=== PATIENT | male | born 1945 | race Caucasian/White ===

== ENCOUNTER 2022-08-31 10:18 | Emergency (ER) | payer MEDICARE ==
[~2022-08-31] VITALS: Ht 165.1 cm; Wt 81.6 kg
[2022-08-31 10:20] VITALS: BP_SYST 143
--- NOTE | 2022-08-31 10:46 | NUR ---
PLACED ON MONITOR, O2, B/P CALLED RT FOR SUCTION SAT @98%
--- NOTE | 2022-08-31 10:50 | NUR ---
Dr Davila evaluating patient at bedside
[2022-08-31 11:03] LABS: BASOPHILS % (AUTO) 0.8 % (0.0-2.0); EOSINOPHILS # (AUTO) 0.1 K/uL (0.0-0.4); HEMATOCRIT 35.1 % (36-54); HEMOGLOBIN 11.9 g/dL (14.0-18.0); LYMPHOCYTES # (AUTO) 1.7 K/uL (1.0-5.5); LYMPHOCYTES % (AUTO) 27.8 % (20.5-51.5); MEAN CORPUSCULAR HEMOGLOBIN 34 pg (27-31); MEAN CORPUSCULAR HGB CONC 34 % (32-36); MEAN CORPUSCULAR VOLUME 101 fL (79.0-98.0); MONOCYTES # (AUTO) 0.4 K/uL (0.0-1.0); NEUTROPHILS # (AUTO) 3.9 K/uL (1.8-7.7); NEUTROPHILS % (AUTO) 64.4 % (40.0-70.0); PLATELET COUNT (AUTO) 278 K/uL (130-430); RED BLOOD CELL COUNT(AUTO) 3.47 MIL/uL (4.2-6.2); RED CELL DISTRIBUTION WIDTH 14.5 % (9.0-15.0)
--- NOTE | 2022-08-31 11:03 | NUR ---
COVID AND FLU NASAL SWAB COLLECTED AND SENT TO LAB
[2022-08-31 11:14] LABS: ANION GAP 5 (5-15); CALCIUM 8.8 mg/dL (8.4-11.0); CHLORIDE 100 mmol/L (98-107); CREATININE 0.74 mg/dL (0.55-1.30); GLUCOSE 133 mg/dL (70-99); UREA NITROGEN, BLOOD 22 mg/dL (8-21)
[2022-08-31 11:21] LABS: ALANINE AMINOTRANSFERASE 35 U/L (12-78); ALBUMIN 3.8 g/dL (3.4-4.8); ASPARTATE AMINOTRANSFERASE 25 U/L (10-37); TOTAL BILIRUBIN 0.5 mg/dL (0.0-1.0)
[2022-08-31] MEDS ORDERED: IBUPROFEN 800 MG TABLET PO ONE (11:30)
[2022-08-31 12:38] VITALS: BP_SYST 110
--- NOTE | 2022-08-31 12:41 | NUR ---
SBAR GIVEN TO MY=Selene(RN) KODY GIBBS, DR TRINIDAD @ [phone]
--- NOTE | 2022-08-31 13:53 | NUR ---
[facility] HERE TO TAKE PT TO [place] [facility], IN STABLE CONDITION, FAMILY AWARE
== END 2022-08-31 13:53 | disposition short-term general hospital (02) ==
LOC: SED 10:18
DX: J69.0 Pneumonitis due to inhalation of food and vomit (principal); R09.02 Hypoxemia; R06.02 Shortness of breath; Z79.899 Other long term (current) drug therapy; Z20.822 Contact with and (suspected) exposure to COVID-19
CPT/HCPCS: 99285; 96365; 71045; 87426; 80053; 83880; 85025; 87040; 84484; 36415; 93005; 83605; 87804 ×2; J1956